=== PATIENT | male | born 1980 | race Caucasian/White ===

== ENCOUNTER 2022-01-16 08:13 | Emergency (ER) | payer BC, OTHER ==
[2022-01-16] MEDS ORDERED: KETOROLAC TROMETHAMINE 30 MG/1 ML VIAL IVPUSH ONE (08:21)
[2022-01-16] MEDS ORDERED: ONDANSETRON 4 MG/2 ML VIAL IVPUSH ONE (08:21)
[2022-01-16] MEDS ORDERED: SODIUM CHLORIDE 1,000 ML IV STA (08:21)
[2022-01-16] MEDS ORDERED: KETOROLAC TROMETHAMINE 15 MG/ML VIAL IVPUSH ONE (08:23)
[2022-01-16] MEDS ORDERED: ONDANSETRON 4 MG/2 ML VIAL ONE (08:23)
[2022-01-16] MEDS ORDERED: KETOROLAC TROMETHAMINE 15 MG/ML VIAL ONE (08:23)
[2022-01-16 08:32] VITALS: TEMP 97.7; BMI 25.8
[2022-01-16] MEDS ORDERED: morphine CARPU-JECT 4 MG/1 ML DISP.SYRIN IVPUSH ONE (08:54)
[2022-01-16 08:57] LABS: HEMATOCRIT 44.4 % (35.4-49); HEMOGLOBIN 15.8 G/dL (11.7-16.9); MCH 31.7 pg (25.7-33.7); MCHC 35.5 g/dl (32.0-35.9); MEAN CELL VOLUME 89.3 fl (80-96); MEAN PLT VOLUME 7.6 fl (7.5-11.1); PLATELET COUNT 235.5 10^3/uL (134-434); RBC 4.97 10^6/uL (4.00-5.60); RDW 13.7 % (11.9-15.9); WHITE BLOOD COUNT 12.6 10^3/uL (4.0-10.8)
[2022-01-16 09:06] LABS: ALBUMIN 4.4 g/dl (3.4-5.0); BILIRUBIN,TOTAL 1.2 mg/dl (0.2-1); CALCIUM 9.5 mg/dl (8.5-10); TOT PROT 7.7 g/dl (6.4-8.2)
[2022-01-16] MEDS ORDERED: morphine SULFATE 4 MG/ML VIAL ONE (09:14)
[2022-01-16 09:44] LABS: PLATELET ESTIMATE ADEQUATE
[2022-01-16 11:47] VITALS: BP 141/93; PULSE 103; RESP 16
== END 2022-01-16 11:47 | disposition home or self-care (01) ==
LOC: FER 08:13
PROC: 3E033GC Introduction of Other Therapeutic Substance into Peripheral Vein, Percutaneous Approach (ICD-10-PCS; principal; 2022-01-16)
DX: N20.1 Calculus of ureter (principal)
CPT/HCPCS: 36415; 74176-TC; 80053; 81003; 85027; 87086; 99285-25

== ENCOUNTER 2023-05-08 18:47 | Emergency (ER) | payer BC, OTHER ==
[2023-05-08 18:57] VITALS: BP 101/63; PULSE 79; RESP 16; TEMP 98.1; BMI 27.2
[2023-05-08] MEDS: ONDANSETRON 4 MG/2 ML VIAL IVPUSH ONE (19:25)
[2023-05-08] MEDS: SODIUM CHLORIDE 1,000 ML IV STA (19:25)
[2023-05-08] MEDS ORDERED: ONDANSETRON 4 MG/2 ML VIAL ONE (19:27)
[2023-05-08] MEDS ORDERED: methylPREDNISolone NA SUCC 125 MG/2 ML VIAL ONE (19:27)
[2023-05-08] MEDS ORDERED: FAMOTIDINE 20 MG/50 ML IVPB 20 MG/50 ML MG IVPB ONE (19:28)
[2023-05-08] MEDS: methylPREDNISolone NA SUCC 125 MG/2 ML VIAL IVPB ONE (19:30)
[2023-05-08] MEDS: FAMOTIDINE 20 MG/50 ML IVPB 20 MG/50 ML MG IVPB ONE (19:45)
== END 2023-05-08 22:16 | disposition home or self-care (01) ==
LOC: FER 18:47
PROC: 3E033GC Introduction of Other Therapeutic Substance into Peripheral Vein, Percutaneous Approach (ICD-10-PCS; principal; 2023-05-08)
PROC: 3E033GC Introduction of Other Therapeutic Substance into Peripheral Vein, Percutaneous Approach (ICD-10-PCS; 2023-05-08)
PROC: 3E033GC Introduction of Other Therapeutic Substance into Peripheral Vein, Percutaneous Approach (ICD-10-PCS; 2023-05-08)
DX: R22.0 Localized swelling, mass and lump, head (principal); T78.40XA Allergy, unspecified, initial encounter
CPT/HCPCS: 99284-25